=== PATIENT | female | born 1950 | race Caucasian/White ===

== ENCOUNTER 2019-06-30 13:18 | Outpatient (CLI) | payer MEDICARE, SELFPAY ==
[2019-06-30] MEDS: iohexol 300 mg/mL 50 mL Btl PO (14:26)
--- NOTE | 2019-06-30 14:30 | CT_ITS ---
WS: [id number] CT ABDOMEN AND PELVIS WITH CONTRAST HISTORY: ABDOMINAL MASS TECHNIQUE: Imaging performed of the abdomen and pelvis with IV contrast. Single phase imaging of the abdomen. Coronal and sagittal reformats are submitted. All CT scans at [facility] use at least one of these dose optimization techniques: automated exposure control; mA and/or kV adjustment per patient size (includes targeted exams where dose is matched to clinical indication); or iterativ e reconstruction. IV CONTRAST: Omnipaque 300; 95 mL IV. Oral contrast: Yes. DLP: 854.11 mGycm COMPARISON: None available. Lower thorax: Emphysema at the lung bases. Heart is normal size. No hiatal hernia. Liver/biliary system: Annette's lobe. No bile duct dilatation. Gallbladder: Normal. No gallstones or wall thickening. No pericholecystic fluid. Pancreas: Normal. Spleen: Normal. Adrenal glands: Normal. Right kidney: Normal. Left kidney: Normal. Aorta: Mild atherosclerosis with no aneurysm. Lymphadenopathy: None. Free fluid: None. GI tract: Diffuse constipation. Distal colon is more collapsed. Loops of GI tract are tortuous overla pping. No evidence for acute diverticulitis. Abdominal wall: Supraumbilical hernia contains fat only. Orifice measures 13 mm. Pelvis: Atrophic uterus as expected. Urinary bladder is negative. No free fluid or adenopathy. Bones: No osteoblastic or osteolytic bone disease. CT/CT abdomen pelvis w con* [id number] IMPRESSION: 1. Diffuse constipation and diverticulosis. No evidence for acute diverticulit is. 2. Supraumbilical hernia contains fat only. 3. Emphysema. 4. No ascites or adenopathy.
[2019-06-30 14:36] LABS: Blood Urea Nitrogen 10 mg/dL (8-23); Glomerular Filtration Rate 83.2 mL/min (90-130)
[2019-06-30] MEDS: iohexol 300 mg/mL 100 mL Btl IV (14:42)
== END 2019-06-30 13:19 | disposition home or self-care (01) ==
LOC: RADWPI 13:25
PROVIDERS: Family Provider Internal Medicine; Visit Provider Surgery
DX: K59.00 Constipation, unspecified (principal); K57.90 Diverticulosis of intestine, part unspecified, without perforation or abscess without bleeding; K42.9 Umbilical hernia without obstruction or gangrene; J43.9 Emphysema, unspecified; R19.00 Intra-abdominal and pelvic swelling, mass and lump, unspecified site
CPT/HCPCS: 74177; 82565; 84520; Q9967

== ENCOUNTER 2019-08-26 07:56 | Day surgery (SDC) | payer MEDICARE, SELFPAY ==
[2019-08-25 12:09] VITALS: BMI 18.3
[2019-08-26] VITALS (12 sets, daily range): BP systolic 116–150; BP diastolic 67–85; PULSE 71–90; RESP 18–20; TEMP 36.2–36.8; O2SAT 94–100
--- NOTE | 2019-08-26 08:28 | ANES.PREANE2 ---
Pre-Anesthetic Assessment Pre-Anesthetic Assessment: Height/Weight: Height 1.57 m Weight 45.359 kg Temp Pulse Resp BP Pulse Ox 98.2 F 79 18 150/85 96 08/26/19 08:09 08/26/19 08:09 08/26/19 08:09 08/26/19 08:09 08/26/19 08:09 Preop Diagnosis: Ventral hernia Proposed Procedure: Operation Date: 08/26/19 09:10 Proposed Procedures p Ventral Hernia Repair (Open)(Not Applicable) - Brian Cruz MD Familial anesthetic complications: none Was Beta Brooke taken within 24 hours: N/A Last intake: NPO > 8 hrs Social: Social History: Alcohol (1-2 beers a day) and Tobacco Exam: Pre-Anes Outpt Exam: alert, oriented x 3, clear to auscultation bilaterally and regular rate & rhythm Airway: Cervical ROM: WNL MP: 2 Additional comments: crowns Pulmonary: Pulmonary: None reported CV/HEM: CV/HEM: None reported : : None reported Hepatic: Hepatic: None reported GI: GI: GERD Metabolic: Metabolic: None reported Musc/skel: Musc/skel: None reported Neuropsych: Neuropsych: None reported Anesthetic Plan: ASA status: 1 Anesthesia: General Risk of > 500 ml blood loss (7ml/kg in children): No PFSH Anesthesia PFSH: Medical History Abdominal pain Arthritis Surgical History History of colonoscopy (01/11/18) Repeat in 10 years History of esophagogastroduodenoscopy (EGD) (01/11/18) Gastritis History of surgery on left wrist (~2019) Family History Mother Arthritis Cancer Stroke Denies family history of Anesthesia complication Bleeding disorder Social History Smoking and tobacco status: current every day smoker cigarettes Data Anesthesia Cardiac Studies: No Data to Display
[2019-08-26] MEDS: sodium chloride 0.9% 1,000 ML 30 ML IV (08:34)
--- NOTE | 2019-08-26 10:10 | W.PM.OPSUD ---
Surgery/Procedure H&P Update DATE OF PROCEDURE: August 26, 2019 DATE H&P PERFORMED: 08/20/19 H&P UPDATE INFORMATION: I have reviewed H&P completed within last 30 days, I have examined patient prior to procedure and No changes to prior documentation PREOP DIAGNOSIS: Ventral hernia PRIMARY INDICATION FOR PROCEDURE: The same PLANNED PROCEDURE: Operation Date: 08/26/19 09:10 Proposed Procedures p Ventral Hernia Repair (Open)(Not Applicable) - Brian Cruz MD
[2019-08-26] MEDS: lidocaine 2% INJ 20 mL INJECTION (10:29)
--- NOTE | 2019-08-26 10:50 | PM.OP ---
Operative Report Date of procedure: August 26, 2019 Pre-op Diagnosis: Ventral hernia Post-op diagnosis: same Post-op Findings: Preperitoneal fat Fascial defect about 1 inch in diameter Procedure Done: Open ventral hernia repair with primary closure Specimens removed/disposition: Hernia sac and contents Surgeon: Brian Cruz Application Integration Architect: precision optics technician Amanda Circulating nurse Abigail Anesthesia: General (Interactive Developer Binh) Estimated blood loss (mL): 5 Condition: stable Disposition: same day Brief History: This is a pleasant 69 years old female patient was referred to my practice concern of a cystic lesion on the abdominal wall, after further evaluation I did certified alcohol and drug counselor the patient that likely she has a ventral hernia that would require surgical repair a CT scan was obtained that confirmed the clinical diagnosis. After thorough history physical exam and reviewing the chart I did certified alcohol and drug counselor the patient for open ventral hernia repair with possible mesh place, indications, risks, benefits and alternatives all discussed with the patient and she did agree to proceed. Informed consent per Procedure: Patient was identified in holding area and the site of the hernia was marked by me ,Patient was brought then to the operating room, general endotracheal anesthesia was administered by the anesthesia provider.prophylactic IV antibiotics were given per protocol Time-out was done verifying the patient's name/date of /planned procedure and destination after the procedure, all were in agreement. SCDs confirmed to be functioning, preoperative antibiotics administered per protocol, and beta kenney protocol was confirmed. Prep and drape of the abdomen was done under the usual sterile technique. I started by longitudinal supraumbilical skin incision, I was able to identify the incarcerated large ventral hernia in the form of preperitoneal fat, dissection was carried all the way down to the fascia, hernia sac was then opened and the sac was excised by application of clamps and 2-0 silk ties were applied the remaining of the viable tissues were reduced back to the abdominal.Tissues excise sent for permanent pathology I was able to free the overlying fat on top of the fascia, facilitate primary closure At that point the fascial defect was about inch in diameter, after freeing all the adhesions, under direct visualization I was able to use #1 PDS to repair the defect primarily, as an interrupted horizontal mattress sutures, thorough irrigation of the wound was then achieved and hemostasis. 2-0 Vicryl was used deep subdermal closure followed by 3-0 Vicryl, then 4-0 Monocryl was used for subcuticular closure of the skin incision. Lidocaine 2% was used for local infiltration to help postoperative pain Surgical glue was then applied Counts of sponges and instruments were completed at the end of the procedure Patient tolerated the procedure well and was taken to the recovery area in stable condition I was present for the whole entire procedure
[2019-08-26] MEDS: fentaNYL 50 mcg/mL INJ 2mL IVP ×2 (11:12→11:17)
--- NOTE | 2019-08-26 11:26 | SUR.PHASEI ---
PT ON RA NOW REPOSITIONED SELF TO RT SIDE ABD SOFT SITE D/I REGULAR ICE TO ABD VSS. SEE EARLIER PAIN MEDS FOR PAIN OF 10 AND 8
[2019-08-26] MEDS: HYDROcodone-acetaminophen 5-325 mg Tablet 1 TAB PO (11:51)
== END 2019-08-26 13:30 | disposition home or self-care (01) ==
PROVIDERS: PCP Internal Medicine; Visit Provider Surgery
PROC: 0WQF0ZZ Repair Abdominal Wall, Open Approach (ICD-10-PCS; CPT 49560; principal; 2019-08-26 09:05)
DX: K43.9 Ventral hernia without obstruction or gangrene (principal); K21.9 Gastro-esophageal reflux disease without esophagitis; M19.90 Unspecified osteoarthritis, unspecified site; F17.210 Nicotine dependence, cigarettes, uncomplicated
CPT/HCPCS: 49560; 12345; 88302; 96365; J0131; J0330; J0690; J1100; J2001; J2250; J2270; J2405; J2704; J3010; J3490; J7030